=== PATIENT | male | born 1940 | race Caucasian/White ===

== ENCOUNTER 2025-08-24 06:25 | Day surgery (SDC) | payer MEDICARE ==
[~2025-08-24] VITALS: Ht 170.2 cm; Wt 74.0 kg
[2025-08-24] VITALS (9 sets, daily range): BP systolic 96–133; BP diastolic 67–77; PULSE 60–69; RESP 11–15; O2SAT 14–95
[2025-08-24] MEDS ORDERED: ceFAZolin 2gm/dext,iso 50mL 50 ML IV ONE (06:53)
--- NOTE | 2025-08-24 07:07 | ELECTROCARDIOGRAPH REPORT ---
[facility] Test Date: 2025-08-24 Test Time: 07:03:34 Pat Name: MARGARITO FLORES Department: [facility] Patient ID: [facility]-[id number] Room: Gender: M Bar Steward: SHERMAN : 1940 Requested By: INEZ TERESA Order Number: [id number] Reading MD: Dr. SARAH Ballard Measurements Intervals [place] Rate: 60 P: 45 TX: 344 QRS: 267 QRSD: 173 T: 71 QT: 472 QTc: 472 Interpretive Statements Atrial-ventricular dual-paced rhythm No further analysis attempted due to paced rhythm Electronically Signed On 08-24-2025 18:04:[address] SARAH Ballard Please click the below link to view image of tracing.
[2025-08-24] MEDS ORDERED: VIT A PO (07:10)
[2025-08-24] MEDS ORDERED: [UNRECOGNIZED DRUG - OTHER] PO (07:10)
[2025-08-24] MEDS ORDERED: OMEP40CA21 PO (07:10)
[2025-08-24] MEDS ORDERED: CEPH500C2 PO (07:10)
[2025-08-24] MEDS ORDERED: ASPI81TA52 PO (07:10)
[2025-08-24] MEDS ORDERED: SODI650T29 PO (07:10)
[2025-08-24] MEDS ORDERED: LIDOcaine 1% W/epiNEPHrine 1:100,000 20ml vial ONE (07:37)
[2025-08-24] MEDS ORDERED: vancomycin 1,000mg inj ONE (07:37)
[2025-08-24] MEDS ORDERED: midazolam 1 mg/ML 2ml injection ONE ×3 (07:37→10:05)
[2025-08-24] MEDS ORDERED: fentaNYL/PF 50MCG/1 ML 2ML syringe ONE ×2 (07:37→09:58)
[2025-08-24 07:47] LABS: MEAN PLATELET VOLUME 9.3 FL (7.4-10.4); RED CELL DISTRIBUTION WIDTH 13.4 % (11.5-14.5)
[2025-08-24 07:56] LABS: INR 1.0 INR
[2025-08-24 08:05] LABS: CREATININE 1.63 MG/DL (0.60-1.10); TOTAL CARBON DIOXIDE 24.5 MMOL/L (24-32); eCRCL 32 ML/MIN; eGFR 41 ML/MIN
[2025-08-24] MEDS: normal saline 1000ml 1,000 ML IV SCH (08:10)
[2025-08-24] MEDS: vancomycin/NS 1 GM ADD-VANTAGE 250 ML IV ONE (08:10)
[2025-08-24] MEDS ORDERED: normal saline 1000ml 1,000 ML IV SCH (11:30)
--- NOTE | 2025-08-24 11:51 | CARDIOLOGY REPORT ---
DATE OF SERVICE: 08/24/2025 DICTATING PHYSICIAN: INEZ TERESA DO CARDIAC CATHETERIZATION REPORT REFERRING PHYSICIAN: Daron Esqueda MD. PROCEDURES PERFORMED: * Pacemaker pocket revision. * 75 minutes conscious sedation and supervision. CLINICAL HISTORY: This is an 85-year-old man received a permanent pacemaker at [facility] about 3 years ago. The device has been working fine; however, several months ago, this patient had a dog jump up on his chest and scratched an area overlying the pacemaker, which eventually caused a festering area that may have penetrated into the pocket itself. For that reason, a revision was recommended. DEVICES IMPLANTED: Implanted devices were as follows: A right ventricular electrode was an Rodgers, model number 2088TC and serial number [id number]; Rodgers right atrial electrode, model number 2088TC and serial number [id number]; Rodgers pulse generator, model number 2272 and serial number [id number]. DESCRIPTION OF THE PROCEDURE: The patient was sedated with fentanyl and Versed. He was then prepared and draped in the usual manner. The area surrounding his pacer pocket was very liberally infiltrated with 1% lidocaine containing a 1:100,000 mixture of epinephrine. The pacemaker pocket was then opened by incising diagonally across the device and a boat-like incision was created so as to include the festered weeping area caused by the dog scratch. An elliptical-shaped chunk of skin was excised. The pacemaker pocket was fully opened. A large mound of superfluous fat (which had been present before the revision started) was then removed. The pocket opening was enlarged considerably in all directions. The generator was removed. The electrodes were removed from the generator. The generator and the electrodes were cleaned in a chlorhexidine solution and then reassembled and the electrodes and generator were placed in the pocket inside of a TYRX pouch. The pocket was then irrigated with a vancomycin antibiotic solution. The subcutaneous layer was closed with multiple 2-0 Vicryl sutures and the skin was approximated with surgical sung. ESTIMATED BLOOD LOSS: The estimated blood loss for the procedure was about 20 mL. COMPLICATIONS: No complications. Initial Maninder parameters were maintained on the device. These were a mode of DDDR, a base rate of 60 BPM, maximum tracking rate of 125 BPM, paced AV delay 350 milliseconds, sensed AV delay 325 milliseconds, amplitude on the atrium 1.625 volts at pulse width of 0.5 milliseconds. Right ventricular amplitude is 1 volt with a pulse width of 0.5 milliseconds. INEZ TERESA DO TID: [id number] RECEIPT: [id number] /[facility] – [place] cc: Daron Esqueda MD [facility]
[2025-08-24] MEDS ORDERED: HYDROcodone/acetaminophen 5mg/325mg tablet PO PRN (12:40)
[2025-08-24] MEDS: HYDROcodone/acetaminophen 10/325mg tab PO PRN (12:51)
[2025-08-24] MEDS: ketorolac trometh 15mg/ml vial 15 MG/ML ML IV ONE (12:51)
== END 2025-08-24 13:30 | disposition home or self-care (01) ==
LOC: SSTAY O 06:25
PROVIDERS: ATTEND Internal Medicine Cardiovascular Disease
DX: T82.7XXA Infection and inflammatory reaction due to other cardiac and vascular devices, implants and grafts, initial encounter (principal); I25.118 Atherosclerotic heart disease of native coronary artery with other forms of angina pectoris; E78.5 Hyperlipidemia, unspecified; Z79.2 Long term (current) use of antibiotics; Z79.82 Long term (current) use of aspirin; Z79.899 Other long term (current) drug therapy; Z90.89 Acquired absence of other organs; Z98.890 Other specified postprocedural states; Y71.3 Surgical instruments, materials and cardiovascular devices (including sutures) associated with adverse incidents; Y92.89 Other specified places as the place of occurrence of the external cause
CPT/HCPCS: 33222; 80048; 83735; 85025; 85610; 93005; 99152; 99153; A6402; J1885; J2250; J3010; J3373; J3490; J7030; Z7610; A6449